=== PATIENT | female | born 1980 | race Caucasian/White ===

== ENCOUNTER 2016-09-01 17:28 | Emergency (ER) | payer MEDICAID, OTHER ==
[~2016-09-01] VITALS: Ht 165.1 cm; Wt 64.0 kg
[~2016-09-01 17:28] MED LIST: CLIN1CAP5 PO; DICL75 PO; HYDR-3533 PO; IBUP800 PO; MMW SSP
[2016-09-01 17:30] VITALS: BP 156/77; PULSE 82; RESP 16; TEMP 97.8; O2SAT 95
[2016-09-01] MEDS ORDERED: IBUP800T23 PO (18:27)
--- NOTE | 2016-09-01 18:28 | PD ---
HPI Chief Complaint: Injury Time Seen by Provider: 18:24 Travel History International Travel<30 days: No Contact w/Intl Traveler<30days: No Traveled to known affect area: No History of Present Illness HPI 36-year-old female presents to the emergency department with complaint of right wrist pain after keeping the patient from falling over twice. She is a [employer] employee in the injury occurred at work. She denies paresthesias, loss of sensation to the affected extremity. Reports decreased range of motion at the wrist secondary to pain. Does not take any medications or tried any treatments to alleviate her symptoms. Allergies to penicillin. No other modifying factors or associated signs and symptoms. PFSH Past Medical History Diminished Hearing: No Immunizations Current: Yes ?: Not LMP: JUL 2016 Tubal Ligation: Yes Past Surgical History Appendectomy: Yes Social History Alcohol Use: Yes (occasional) Tobacco Use: Yes (1.5 PPD) Substance Use: No Allergies-Medications (Allergen,Severity, Reaction): Coded Allergies: Penicillin (Verified Allergy, Severe, Rash, 09/01/16) GENERALIZED FROM HEAD TO TOE PER PT Reported Meds & Prescriptions Reported Meds & Active Scripts Active Ibuprofen 800 Mg Tab 800 Mg PO Q6HR PRN Review of Systems Except as stated in HPI: all other systems reviewed are Neg Physical Exam Narrative GENERAL: Well-nourished, well-developed female patient, in no acute distress SKIN: Warm and dry. HEAD: Atraumatic. Normocephalic. EYES: Pupils equal and round. No scleral icterus. No injection or drainage. ENT: Mucosa pink and moist. Airway patent. NECK: Trachea midline. CARDIOVASCULAR: Regular rate. RESPIRATORY: No accessory muscle use. GASTROINTESTINAL: Flat. MUSCULOSKELETAL: Right wrist with tenderness on palpation; without erythema, edema, ecchymosis; decreased range of motion secondary to patient guarding and pain; no obvious deformity. Right upper extort is supple and non-tense with 2+ radial pulses and sensory intact. No obvious deformities. No clubbing. No cyanosis. NEUROLOGICAL: Awake and alert. Oriented 3. No obvious cranial nerve deficits. Motor grossly within normal limits. Normal speech. PSYCHIATRIC: Appropriate mood and affect; insight and judgment normal. Data Data Last Documented VS Vital Signs Date Time Temp Pulse Resp B/P Pulse Ox O2 Delivery O2 Flow Rate FiO2 09/01/16 17:30 97.8 82 16 156/77 95 Room Air Orders Wrist, Complete (Ogt2jes) (09/01/16 18:22) Ibuprofen (Motrin) (09/01/16 18:30) Splint Or Brace Apply/Monitor (09/01/16 19:00) Cockup Hand Splint (09/01/16 ) MDM Medical Decision Making Medical Screen Exam Complete: Yes Emergency Medical Condition: Yes Medical Record Reviewed: Yes Differential Diagnosis Wrist sprain, wrist fracture, wrist dislocation Narrative Course 36-year-old female with right wrist injury. [employer] employee. Injury occurred at work. Ibuprofen ordered. Right wrist x-ray ordered. Right wrist x-ray with no acute findings. Wrist splint ordered and applied for support. Ibuprofen prescribed for home. Instructed patient to follow-up if symptoms persist greater than 7-10 days. Patient verbalizes understanding and agreement with treatment plan. Patient is medically cleared and stable for discharge. Discussed reasons to return to the emergency department. Instructed patient to follow up with primary care provider. Patient agrees with treatment plan. The patients vital signs are stable and the patient is stable for outpatient follow-up and treatment. Patient discharged home, stable and in no acute distress. Diagnosis Primary Impression: Right wrist sprain Qualified Code: S63.501A - Right wrist sprain, initial encounter Referrals: Primary Care Physician Patient Instructions: General Instructions, Wrist Sprain (ED) Departure Forms: Tests/Procedures, Work Release Enter return to work date: Sep 04, 2016 Additional Instructions: Tylenol or ibuprofen as directed and as needed to reduce pain Rest, ice, compress, and elevate extremity to decrease pain and inflammation Wrist Splint for support Avoid aggravating activity; increase activity as tolerated Follow-up with primary care provider Return to the emergency department immediately with worsening symptoms Med/Other Pt SpecificInfo: Prescription(s) given Scripts Ibuprofen 800 Mg [id number] Mg PO Q6HR PRN (PAIN) #30 TAB Ref 0 Prov:Uyen Santos 09/01/16 Disposition: 01 DISCHARGE HOME Condition: Stable Uyen Santos Sep 01, 2016 18:28
[2016-09-01] MEDS ORDERED: IBUPROFEN 800 MG TAB PO ONE (18:30)
--- NOTE | 2016-09-01 19:34 | RADRPT ---
EXAM DATE/TIME: 09/01/2016 19:16 [facility] COMPARISON: No previous studies available for comparison. INDICATIONS : Pain from catching a falling person. MEDICAL HISTORY : None. SURGICAL HISTORY : None. ENCOUNTER: Initial ACUITY: 1 day PAIN SCORE: 4/10 LOCATION: Right wrist. FINDINGS: Three view examination of the right wrist demonstrates no soft tissue swelling, dislocation, or fract ure. The carpal bones are in normal alignment. The joint spaces are maintained. Bony mineralizatio n is normal. CONCLUSION: Intact right wrist. Adalberto Moran MD on September 01, 2016 at 19:32 Board Certified Radiologist. This report was verified electronically.
== END 2016-09-01 20:13 | disposition home or self-care (01) ==
LOC: NETRI 17:28
DX: S63.501A Unspecified sprain of right wrist, initial encounter (principal); F17.210 Nicotine dependence, cigarettes, uncomplicated; W19.XXXA Unspecified fall, initial encounter; Y99.0 Civilian activity done for income or pay
CPT/HCPCS: 73110; 99283; L3908